=== PATIENT | male | born 2000 | race African-American/Black ===

== ENCOUNTER 2022-02-01 11:27 | Emergency (ER) | payer MEDICAID ==
[~2022-02-01] VITALS: Ht 170.2 cm; Wt 67.1 kg
[2022-02-01 11:34] VITALS: BP 126/70
--- NOTE | 2022-02-01 11:52 | NUR ---
21 YO MALE ARRIVED CO PAINFUL URINATATION 09/21 AND DISCHARGE FOR PAST FIVE DAYS. PT DESCRIBES PENILE DISCHARGE YELLOW/WHITE FOR PAST FIVE DAYS. URINE SAMPLE GIVEN. [facility]
[2022-02-01] MEDS ORDERED: cefTRIAXone 500 MG in LIDOCAINE MPF 1% 1 ML IM ONE (12:10)
[2022-02-01] MEDS ORDERED: LIDOCAINE MPF 1% 5 ML ONE (12:15)
[2022-02-01] MEDS ORDERED: cefTRIAXone 500 MG VIAL ONE (12:15)
[2022-02-01] MEDS ORDERED: DOXY-690 PO (12:41)
[2022-02-01] MEDS ORDERED: CEPH-588 PO (12:56)
[2022-02-01 13:20] VITALS: BP 126/70
--- NOTE | 2022-02-01 13:23 | NUR ---
Patient discharged with v/s stable. Written and verbal after care instructions given and explained FOR DYSURIA,GONORRHEA TEST, CHLAMYDIA TEST. Patient alert, oriented and verbalized understanding of instructions. Ambulatory with to car. All questions addressed prior to discharge. ID band removed. Patient advised to follow up with PMD. Rx of KEFLEX AND VIBRAMYCIN SENT. Patient educated on indication of medication including possible reaction and side effects. Opportunity to ask questions provided and answered.
--- NOTE | 2022-02-02 13:00 | NUR ---
LATE ENTRY. RECEIVED POSITIVE CT/NG PCR PANEL. FORM GIVEN TO JAZZ GIL. TREATMENT APPROPRIATE. ATTEMPTED TO CALL PT TO NOTIFY, NO ANSWER. LEFT MESSAGE. FORM GIVEN TO INFECTION CONTROL/PLACED IN BINDER
== END 2022-02-01 13:20 | disposition home or self-care (01) ==
LOC: MED 11:27
DX: R30.0 Dysuria (principal); R36.9 Urethral discharge, unspecified; Z79.2 Long term (current) use of antibiotics
CPT/HCPCS: 81002; 87086; 87491; 96372; 99283; J0696; J2001

== ENCOUNTER 2022-06-26 07:05 | Emergency (ER) | payer MEDICAID ==
[~2022-06-26] VITALS: Ht 168.9 cm; Wt 68.0 kg
[~2022-06-26 07:05] MED LIST: CEPH-588 PO; DOXY-690 PO
[2022-06-26 07:32] VITALS: BP 113/70
[2022-06-26] MEDS ORDERED: DOXYCYCLINE 100 MG CAP PO SCH (08:45)
[2022-06-26] MEDS ORDERED: cefTRIAXone 500 MG in LIDOCAINE MPF 1% 1 ML IM ONE (08:45)
[2022-06-26] MEDS ORDERED: DOXY-690 PO (09:00)
--- NOTE | 2022-06-26 09:16 | NUR ---
21/M PRESENTS TO ED WITH C/O PENILE DISCHARGE AND RASH X3 DAYS. PATIENT STATES HX OF STDS AND BELIEVES MAY BE RELATED TO S/S, SEEN HERE FOR SAME S/S LAST YEAR. DENIES FEVERS, CHILLS, N/V/D.
[2022-06-26] MEDS ORDERED: cefTRIAXone 500 MG VIAL ONE (09:31)
[2022-06-26] MEDS ORDERED: LIDOCAINE MPF 1% 5 ML ONE (09:31)
--- NOTE | 2022-06-26 09:42 | NUR ---
21 Y/O M BIB SELF, C/O WHITE PENILE DISCHARGE FOR 2 DAYS. DENIES DYSURIA, HEMATURIA. DENIES PAIN AT THIS TIME. DENIES ANY NEW SEXUAL PARTNERS. PMH: EPILEPSY NKA MED: DENIES
--- NOTE | 2022-06-26 10:16 | NUR ---
Patient discharged with v/s stable. Written and verbal after care instructions given and explained. Patient alert, oriented and verbalized understanding of instructions. Ambulatory with steady gait. All questions addressed prior to discharge. ID band removed. Patient advised to follow up with PMD. Rx of DOXYCYCLINE HYCLATE given. Opportunity to ask questions provided and answered.
--- NOTE | 2022-06-26 10:21 | NUR ---
The patient's care was reviewed and supervised by Tammy Valle RN.
[2022-06-26 10:46] LABS: APPEARANCE,URINE HAZY (CLEAR); BILIRUBIN,URINE NEGATIVE (NEGATIVE); BLOOD, URINE NEGATIVE (NEGATIVE); COLOR,URINE YELLOW (YELLOW); LEUKOCYTE ESTERASE ,URINE TRACE (NEGATIVE); NITRITE, URINE NEGATIVE (NEGATIVE); UGLUCOSE NEGATIVE (NEGATIVE)
[2022-06-26 11:10] LABS: RBC,URINE NONE SEEN /HPF (0-5); WBC,URINE 80-100 /HPF (0-5)
== END 2022-06-26 10:16 | disposition home or self-care (01) ==
LOC: MED 07:05
DX: R36.9 Urethral discharge, unspecified (principal); Z79.2 Long term (current) use of antibiotics
CPT/HCPCS: 81001; 87086; 87491; 96372; 99283; J0696; J2001

== ENCOUNTER 2022-08-03 20:39 | Emergency (ER) | payer MEDICAID ==
[~2022-08-03] VITALS: Ht 170.2 cm; Wt 68.0 kg
[2022-08-03 20:43] VITALS: BP 124/80
--- NOTE | 2022-08-03 21:10 | NUR ---
21 yo/m biba w c/o of possible seizure, pt reports he woke up and his body was feeling drained, + nausea, + throbbing headache 8/10 and felt like passing out and called for an ambulance. pt adds shock like sensation to head for approx 3 months intermitent. denies chest pain, sob, denies falls, or loc. ramya ongoing nausea or feeling like he is going to pass out. pmh: epilepsy allergies: denies
[2022-08-03] MEDS ORDERED: IBUPROFEN 600 MG TAB PO ONE (21:15)
[2022-08-03] MEDS ORDERED: ACETAMINOPHEN EXTRA STRENGTH 500 MG TAB PO ONE (21:15)
[2022-08-03 21:19] LABS: BASOPHILS # (AUTO) 0.1 K/uL (0.00-0.22); BASOPHILS % (AUTO) 0.7 % (0.0-2.0); EOSINOPHILS # (AUTO) 0.1 K/uL (0-0.4); HEMATOCRIT 40.9 % (36-52); HEMOGLOBIN 14.3 g/dL (12.0-18.0); LYMPHOCYTES # (AUTO) 1.6 K/uL (2.0-11.5); LYMPHOCYTES % (AUTO) 21.8 % (20.5-51.1); MEAN CORPUSCULAR HEMOGLOBIN 31 pg (27-31); MEAN CORPUSCULAR HGB CONC 35 g/dL (33-37); MEAN CORPUSCULAR VOLUME 88.4 fL (80-94); MONOCYTES # (AUTO) 0.4 K/uL (0.8-1.0); MONOCYTES % (AUTO) 6.1 % (1.7-9.3); NEUTROPHILS # (AUTO) 5.2 K/uL (1.8-7.7); NEUTROPHILS % (AUTO) 70.4 % (42.2-75.2); PLATELET COUNT (AUTO) 190 K/uL (140-450); RED BLOOD CELL COUNT(AUTO) 4.62 MIL/uL (4.20-6.10); RED CELL DISTRIBUTION WIDTH 12.9 % (11.6-13.7); WHITE BLOOD COUNT (AUTO) 7.4 K/uL (4.8-10.8)
--- NOTE | 2022-08-03 21:21 | NUR ---
pt to ct
[2022-08-03 21:41] LABS: ALBUMIN 4.2 g/dL (3.4-5.0); ANION GAP 11.2 (8-16); ASPARTATE AMINOTRANSFERASE 22 U/L (15-37); CARBON DIOXIDE 28.5 mmol/L (21-32); CHLORIDE 103 mmol/L (98-107); CREATININE 1.2 mg/dL (0.6-1.3); GFR ARICAN-AMERICAN 98 mL/min (>90); GLUCOSE 109 mg/dL (74-106); POTASSIUM 3.7 mmol/L (3.5-5.1); SODIUM SERUM 139 mmol/L (136-145); TOTAL BILIRUBIN 0.4 mg/dL (0.0-1.0); UREA NITROGEN, BLOOD 12 mg/dL (7-18)
[2022-08-03 21:47] LABS: APPEARANCE,URINE CLEAR (CLEAR); BILIRUBIN,URINE 1+ (NEGATIVE); BLOOD, URINE NEGATIVE (NEGATIVE); COLOR,URINE YELLOW (YELLOW); LEUKOCYTE ESTERASE ,URINE NEGATIVE (NEGATIVE); NITRITE, URINE NEGATIVE (NEGATIVE); UGLUCOSE NEGATIVE (NEGATIVE)
[2022-08-03 21:56] LABS: BARBITURATE, URINE NEGATIVE ng/ml (NEG <=200); BENZODIAZEPINE, URINE NEGATIVE ng/mL (NEG <=200); CANNABINOID, URINE POSITIVE ng/mL (NEG <=50); COCAINE, URINE NEGATIVE ng/mL (NEG <=300); OPIATE, URINE NEGATIVE ng/mL (NEG <=2000); PHENCYCLIDINE SCREEN,URINE NEGATIVE ng/mL (NEG <=25)
[2022-08-03] MEDS ORDERED: KEP500 PO (23:06)
--- NOTE | 2022-08-03 23:14 | NUR ---
PT REPORTS HEADACHE HAS RESOLVED.
[2022-08-03 23:35] VITALS: BP 133/61
--- NOTE | 2022-08-03 23:35 | NUR ---
Patient discharged with v/s stable. Written and verbal after care instructions given and explained. Patient alert, oriented and verbalized understanding of instructions. Ambulatory with steady gait. All questions addressed prior to discharge. ID band removed. Patient advised to follow up with PMD. Rx of KECAMERON given. Patient educated on indication of medication including possible reaction and side effects. Opportunity to ask questions provided and answered.
== END 2022-08-03 23:35 | disposition home or self-care (01) ==
LOC: MED 20:39
DX: R51.9 Headache, unspecified (principal); G40.909 Epilepsy, unspecified, not intractable, without status epilepticus; Z79.899 Other long term (current) drug therapy
CPT/HCPCS: 36415; 70450; 80053; 80305; 81003; 85025; 99284; G0482

== ENCOUNTER 2022-09-03 13:28 | Emergency (ER) | payer MEDICAID ==
[~2022-09-03] VITALS: Ht 170.2 cm; Wt 69.4 kg
[~2022-09-03 13:28] MED LIST changes: +KEP500 PO
[2022-09-03 14:05] VITALS: BP 122/61
[2022-09-03] MEDS ORDERED: IBUP-2213 PO (15:35)
--- NOTE | 2022-09-03 16:00 | NUR ---
PT. LEFT ER WITHOUT D/C INSTRUCTIONS.
== END 2022-09-03 18:34 | disposition home or self-care (01) ==
LOC: MED 13:28
DX: S60.455A Superficial foreign body of left ring finger, initial encounter (principal); S60.415A Abrasion of left ring finger, initial encounter; G40.909 Epilepsy, unspecified, not intractable, without status epilepticus; Z79.899 Other long term (current) drug therapy; X58.XXXA Exposure to other specified factors, initial encounter; Y93.89 Activity, other specified; Y92.89 Other specified places as the place of occurrence of the external cause; Y99.8 Other external cause status
CPT/HCPCS: 99284